=== PATIENT | female | born 1995 | race Caucasian/White ===

== ENCOUNTER 2020-03-30 23:05 | Emergency (ER) | payer OTHER ==
[~2020-03-30] VITALS: Ht 160 cm; Wt 74.8 kg
[2020-03-31] MEDS ORDERED: KETO10TA2 PO ×2 (04:27→04:34)
== END 2020-03-31 04:54 | disposition home or self-care (01) ==
LOC: ER 23:05
DX: U07.1 COVID-19 (principal); R10.2 Pelvic and perineal pain